=== PATIENT | female | born 1945 | race Hispanic/Latino ===

== ENCOUNTER 2018-01-30 14:01 | Emergency (ER) | payer MEDICARE ==
[~2018-01-30 14:01] MED LIST: ACET-66 PO; ASPI-1197 PO; AZAT50TA PO; CITA40TA6 PO; CLOB1KT.5 TP; CLON2TAB21 PO; FURO20TA4 PO; GLIP5TAB11 PO; HYDR25TA PO; INSLAN SQ; LINA290C PO; LOSA50TA37 PO; METF10004 PO; MIRT15TA6 PO; PRED5TAB44 PO; SIMV40TA5 PO
[2018-01-30 14:48] LABS: APPEARANCE,URINE Clear (CLEAR); BILIRUBIN,URINE Negative (NEGATIVE); COLOR,URINE Yellow (YELLOW); GLUCOSE, URINE (UA) Negative (NEGATIVE); KETONES,URINE Trace mg/dL (NEGATIVE); LEUKOCYTE ESTERASE ,URINE Small (NEGATIVE); NITRATE,URINE Negative (NEGATIVE); OCCULT BLOOD,URINE Negative (NEGATIVE); PROTEIN,URINE Negative (NEGATIVE); UROBILINOGEN,URINE 0.2 mg/dL (0.2-1.0)
[2018-01-30] MEDS ORDERED: DEXAMETHASONE SOD PHOSPHATE 10MG/ML 1ML VIAL ONE (14:52)
[2018-01-30 14:56] LABS: BACTERIA,URINE None Seen /HPF (None Seen); HYALINE CASTS, URINE 0-1 /LPF (0-1 /LPF); RBC,URINE None Seen /HPF (0-1); SQUAMOUS EPITHELIAL CELL,UR 0-2 /HPF (0-2); WBC,URINE 0-1 /HPF (0-1)
== END 2018-01-30 16:23 | disposition home or self-care (01) ==
LOC: EDH 14:01
DX: M54.41 Lumbago with sciatica, right side (principal); E11.9 Type 2 diabetes mellitus without complications; I10 Essential (primary) hypertension; I25.10 Atherosclerotic heart disease of native coronary artery without angina pectoris; M19.90 Unspecified osteoarthritis, unspecified site; Z98.62 Peripheral vascular angioplasty status; Z91.040 Latex allergy status; Z88.1 Allergy status to other antibiotic agents; Z79.4 Long term (current) use of insulin
CPT/HCPCS: 72131; 81001; 96372; 99285; J1100

== ENCOUNTER → 2018-03-15 | Outpatient (CLI) | payer MEDICARE, OTHER | END | disposition home or self-care (01) | LOC: RAH 12:47 | PROVIDERS: ATTEND Internal Medicine Endocrinology, Diabetes & Metabolism | DX: E04.2 Nontoxic multinodular goiter (principal); E64.2 Sequelae of vitamin C deficiency | CPT/HCPCS: 76536 ==

== ENCOUNTER → 2018-07-06 | Outpatient (CLI) | payer OTHER ==
[~2018-07-06] MED LIST changes: +LOSA50TA25 PO; -LOSA50TA37 PO; +METF-446 PO; -METF10004 PO
== END | disposition home or self-care (01) ==
LOC: RAH 08:43
PROVIDERS: ATTEND Family Medicine
DX: M54.41 Lumbago with sciatica, right side (principal); G70.01 Myasthenia gravis with (acute) exacerbation; K21.9 Gastro-esophageal reflux disease without esophagitis; F32.9 Major depressive disorder, single episode, unspecified; I10 Essential (primary) hypertension; E11.65 Type 2 diabetes mellitus with hyperglycemia; E78.00 Pure hypercholesterolemia, unspecified; E03.9 Hypothyroidism, unspecified
CPT/HCPCS: 72148

== ENCOUNTER → 2018-09-07 | Outpatient (CLI) | payer OTHER | END | disposition home or self-care (01) | LOC: OIH 15:09 | PROVIDERS: ATTEND Family Medicine | DX: M25.512 Pain in left shoulder (principal); M79.89 Other specified soft tissue disorders; K21.9 Gastro-esophageal reflux disease without esophagitis | CPT/HCPCS: 73030 ==

== ENCOUNTER → 2018-09-09 | Outpatient (CLI) | payer OTHER | END | disposition home or self-care (01) | LOC: OIH 14:59 | PROVIDERS: ATTEND Family Medicine | DX: M70.72 Other bursitis of hip, left hip (principal); K21.9 Gastro-esophageal reflux disease without esophagitis | CPT/HCPCS: 73502 ==

== ENCOUNTER → 2018-10-01 | Outpatient (CLI) | payer OTHER | END | disposition home or self-care (01) | LOC: RAH 09:04 | PROVIDERS: ATTEND Family Medicine | DX: Z12.31 Encounter for screening mammogram for malignant neoplasm of breast (principal) | CPT/HCPCS: 77067 ==

== ENCOUNTER → 2018-10-22 | Outpatient (CLI) | payer OTHER ==
[~2018-10-22] MED LIST changes: -LOSA50TA25 PO; +LOSA50TA64 PO
== END | disposition home or self-care (01) ==
LOC: OIH 10:22
PROVIDERS: ATTEND Family Medicine
DX: M19.012 Primary osteoarthritis, left shoulder (principal)
CPT/HCPCS: 73030

== ENCOUNTER → 2018-11-23 | Outpatient (CLI) | payer OTHER | END | disposition home or self-care (01) | LOC: RAH 07:12 | PROVIDERS: ATTEND Orthopaedic Surgery | DX: R60.9 Edema, unspecified (principal) | CPT/HCPCS: 73721 ==

== ENCOUNTER 2019-01-14 08:36 | Day surgery (SDC) | payer OTHER ==
[2019-01-13 15:06] VITALS: BP 126/55
[2019-01-13 15:07] LABS: EOSINOPHILS % (AUTO) 1.3 % (0.0-8.0); HEMATOCRIT 37.5 % (36-48); LYMPHOCYTES % (AUTO) 23.9 % (21.0-51.0); MEAN CORPUSCULAR HEMOGLOBIN 34.1 pg (27.0-33.0); MEAN CORPUSCULAR HGB CONC 34.2 g/dL (32.0-36.0); MEAN CORPUSCULAR VOLUME 99.7 fL (79-99); NEUTROPHILS % (AUTO) 60.8 % (40.0-77.0); NUCLEATED RED BLOOD CELLS 0.2 % (0.0-0.19); PLATELET COUNT (AUTO) 231 K/uL (130-400); RED BLOOD CELL COUNT(AUTO) 3.76 MIL/uL (4.00-5.50); RED CELL DISTRIBUTION WIDTH 15.2 % (11.0-15.5); WHITE BLOOD COUNT (AUTO) 7.1 K/uL (4.8-10.8)
[2019-01-13 15:19] LABS: POTASSIUM 3.1 mmol/L (3.5-5.1)
--- NOTE | 2019-01-13 16:18 | NUR ---
labs abnormal k+ , reported to Dr. Krause , further orders given and will be carried out.
[~2019-01-14] VITALS: Ht 165.1 cm; Wt 69.9 kg
[2019-01-14] VITALS (18 sets, daily range): BP systolic 99–129; BP diastolic 50–62
[2019-01-14] MEDS: CLINDAMYCIN 900 MG/D5% WATER 50 ML IV SCH ×2 (06:00→12:55)
[~2019-01-14 08:36] MED LIST changes: -CITA40TA6 PO; -CLOB1KT.5 TP; -INSLAN SQ; +INSU100V12 SQ; +ISOS60TA4 PO; +MELA1TAB8 PO; +METO-391 PO; +NAPR-1023 PO; +NITR0.4T SL; -PRED5TAB44 PO; +PYRI60TA PO; +RANI150T7 PO; +VENL150T3 PO
[2019-01-14] MEDS ORDERED: SODIUM CHLORIDE 0.9% 1000ML 1,000 ML IV ONE (09:34)
--- NOTE | 2019-01-14 09:50 | NUR ---
POTENTIAL FOR INFECTION: NO SHAVING NEEDED TO LEFT SHOULDER, WIPED WITH BK: 2% CHLORHEXIDINE GLUCONATE CLOTH PT PRE-OP SKIN PREP PER ALIREZA RAMIREZ
[2019-01-14] MEDS ORDERED: EPINEPHRINE 1 MG/ML 30ML VIAL IJ ONE (10:11)
[2019-01-14] MEDS ORDERED: PROPOFOL 10 MG/ML 20ML VIAL IV ONE (12:27)
[2019-01-14] MEDS ORDERED: ONDANSETRON HCL 4 MG/2 ML VIAL ONE (12:27)
[2019-01-14] MEDS ORDERED: LIDOCAINE PF 2% 5ML ABBOJECT ONE (12:27)
[2019-01-14] MEDS ORDERED: DEXAMETHASONE SOD PHOSPHATE 10MG/ML 1ML VIAL ONE (12:27)
[2019-01-14] MEDS ORDERED: FENTANYL CITRATE PF 50 MCG/1 ML 2ML VIAL ONE (12:27)
[2019-01-14] MEDS ORDERED: FENTANYL CITRATE PF 50 MCG/1 ML 5ML AMP IV ONE (12:28)
[2019-01-14] MEDS ORDERED: EPHEDRINE SULFATE 50 MG/ML AMPULE ONE (12:47)
[2019-01-14] MEDS ORDERED: HYDR-4457 PO (14:21)
[2019-01-14] MEDS ORDERED: CLIN300C3 PO (14:21)
== END 2019-01-14 16:35 | disposition home or self-care (01) ==
LOC: DAH 08:36
PROVIDERS: ATTEND Orthopaedic Surgery
DX: M75.42 Impingement syndrome of left shoulder (principal); Z98.890 Other specified postprocedural states; M25.512 Pain in left shoulder; Z79.899 Other long term (current) drug therapy; G89.29 Other chronic pain; Z90.710 Acquired absence of both cervix and uterus; M19.90 Unspecified osteoarthritis, unspecified site; F41.9 Anxiety disorder, unspecified; F32.9 Major depressive disorder, single episode, unspecified; G70.00 Myasthenia gravis without (acute) exacerbation; I25.10 Atherosclerotic heart disease of native coronary artery without angina pectoris; K21.9 Gastro-esophageal reflux disease without esophagitis; E11.9 Type 2 diabetes mellitus without complications; E78.5 Hyperlipidemia, unspecified; I10 Essential (primary) hypertension
CPT/HCPCS: 29822; 29826; 36415 ×2; 80048; 82948 ×2; 84132; 85025; A4565; A4649 ×2; A4930; A6204; G0168; J0171; J1100; J2001; J2405; J2704; J3010 ×2; J3490 ×2; J7030; J7120

== ENCOUNTER → 2019-02-22 | Outpatient (CLI) | payer OTHER ==
[~2019-02-22] MED LIST changes: +CLIN300C3 PO; +HYDR-4457 PO
== END | disposition home or self-care (01) ==
LOC: OIH 15:58
PROVIDERS: ATTEND Family Medicine
DX: M79.671 Pain in right foot (principal)
CPT/HCPCS: 73630

== ENCOUNTER 2019-03-18 05:39 | Day surgery (SDC) | payer OTHER ==
[~2019-03-18] VITALS: Ht 165.1 cm; Wt 69.9 kg
[~2019-03-18 05:39] MED LIST changes: -ASPI-1197 PO; -CLIN300C3 PO; -HYDR-4457 PO; +SODIUM CHLORIDE 0.9% 1000ML 1,000 ML IV ONE
[2019-03-18 07:07] VITALS: BP 99/47
[2019-03-18] MEDS ORDERED: PROPOFOL 10 MG/ML 20ML VIAL IV ONE ×2 (07:46)
[2019-03-18 08:13] VITALS: BP 101/43
[2019-03-18 08:18] VITALS: BP 96/41
[2019-03-18 08:23] VITALS: BP 98/46
[2019-03-18 08:28] VITALS: BP 98/47
[2019-03-18 08:33] VITALS: BP 100/48
--- NOTE | 2019-03-18 08:38 | NUR ---
DC PT DC HOME VIA WC, NO DISTRESS NOTED. DENIED ANY PAIN OR DISCOMFORTS. PIV REMOVED SITE ASYMPTOMATIC, DC INSTRUCTIONS GIVEN TO PATIENT SPOUSE EARLIER,
== END 2019-03-18 08:38 | disposition home or self-care (01) ==
LOC: ENDO 05:39 → DAH 05:39 → ENDO 08:38
PROVIDERS: ATTEND Internal Medicine
DX: K29.50 Unspecified chronic gastritis without bleeding (principal); K31.89 Other diseases of stomach and duodenum; K21.0 Gastro-esophageal reflux disease with esophagitis; K31.84 Gastroparesis; K82.8 Other specified diseases of gallbladder; K59.00 Constipation, unspecified; Z86.010 Personal history of colon polyps; I10 Essential (primary) hypertension; F32.9 Major depressive disorder, single episode, unspecified; I25.10 Atherosclerotic heart disease of native coronary artery without angina pectoris; E11.9 Type 2 diabetes mellitus without complications; E03.9 Hypothyroidism, unspecified; F41.9 Anxiety disorder, unspecified; G70.00 Myasthenia gravis without (acute) exacerbation; Z79.82 Long term (current) use of aspirin; Z79.84 Long term (current) use of oral hypoglycemic drugs; Z79.899 Other long term (current) drug therapy; Z90.710 Acquired absence of both cervix and uterus; Z90.49 Acquired absence of other specified parts of digestive tract; Z98.890 Other specified postprocedural states; Z80.0 Family history of malignant neoplasm of digestive organs; Z88.0 Allergy status to penicillin; Z88.5 Allergy status to narcotic agent; Z88.8 Allergy status to other drugs, medicaments and biological substances; Z91.040 Latex allergy status; Z88.2 Allergy status to sulfonamides
CPT/HCPCS: 43239; 82948 ×2; 88305; 93005; A4606; J2704 ×2; J7030

== ENCOUNTER 2019-03-20 17:26 | Emergency (ER) | payer OTHER ==
[~2019-03-20 17:26] MED LIST changes: -SODIUM CHLORIDE 0.9% 1000ML 1,000 ML IV ONE
[2019-03-20] MEDS ORDERED: SODIUM CHLORIDE 0.9% 1000ML 1,000 ML IV ONE (18:16)
[2019-03-20] MEDS ORDERED: CYCLOBENZAPRINE HCL 10 MG TABLET ONE (18:17)
[2019-03-20 18:20] LABS: BASOPHILS % (AUTO) 0.6 % (0.0-5.0); HEMATOCRIT 36.5 % (36-48); LYMPHOCYTES % (AUTO) 26.8 % (21.0-51.0); MEAN CORPUSCULAR HEMOGLOBIN 33.7 pg (27.0-33.0); MEAN CORPUSCULAR HGB CONC 34.2 g/dL (32.0-36.0); MEAN CORPUSCULAR VOLUME 98.6 fL (79-99); MONOCYTES % (AUTO) 12.7 % (3.0-13.0); NEUTROPHILS % (AUTO) 58.9 % (40.0-77.0); NUCLEATED RED BLOOD CELLS 0.1 % (0.0-0.19); PLATELET COUNT (AUTO) 244 K/uL (130-400); RED CELL DISTRIBUTION WIDTH 15.4 % (11.0-15.5); WHITE BLOOD COUNT (AUTO) 8.1 K/uL (4.8-10.8)
[2019-03-20 18:31] LABS: CREATININE 1.2 mg/dL (0.5-1.5); POTASSIUM 3.1 mmol/L (3.5-5.1)
[2019-03-20 18:35] LABS: BILIRUBIN,DIRECT 0.1 mg/dL (0.0-0.3); BILIRUBIN,TOTAL 0.5 mg/dL (0.2-1.0); TOTAL PROTEIN, SERUM 8.2 g/dL (6.0-8.3)
[2019-03-20] MEDS ORDERED: POTASSIUM BICARB/CIT AC 25 MEQ TABLET.EFF ONE (19:10)
[2019-03-20] MEDS ORDERED: KETOROLAC TROMETHAMINE 30MG/ML ONE (19:10)
[2019-03-20 20:25] LABS: APPEARANCE,URINE Clear (CLEAR); BILIRUBIN,URINE Negative (NEGATIVE); COLOR,URINE Yellow (YELLOW); GLUCOSE, URINE (UA) Negative (NEGATIVE); KETONES,URINE Negative (NEGATIVE); LEUKOCYTE ESTERASE ,URINE Trace (NEGATIVE); NITRATE,URINE Negative (NEGATIVE); OCCULT BLOOD,URINE Negative (NEGATIVE); PROTEIN,URINE Negative (NEGATIVE)
[2019-03-20 20:55] LABS: BACTERIA,URINE Rare /HPF (None Seen); RBC,URINE None Seen /HPF (0-1); WBC,URINE 0-1 /HPF (0-1)
[2019-03-20 20:56] LABS: SQUAMOUS EPITHELIAL CELL,UR Rare /HPF (0-2)
== END 2019-03-20 20:29 | disposition home or self-care (01) ==
LOC: EDH 17:26
DX: S13.9XXA Sprain of joints and ligaments of unspecified parts of neck, initial encounter (principal); I10 Essential (primary) hypertension; E11.9 Type 2 diabetes mellitus without complications; F32.9 Major depressive disorder, single episode, unspecified; I25.10 Atherosclerotic heart disease of native coronary artery without angina pectoris; F41.9 Anxiety disorder, unspecified; Z88.0 Allergy status to penicillin; Z88.1 Allergy status to other antibiotic agents; Z88.5 Allergy status to narcotic agent; Z88.6 Allergy status to analgesic agent; Z91.040 Latex allergy status; Z88.8 Allergy status to other drugs, medicaments and biological substances; Z79.4 Long term (current) use of insulin; X58.XXXA Exposure to other specified factors, initial encounter; Y93.89 Activity, other specified; Y92.89 Other specified places as the place of occurrence of the external cause; Y99.8 Other external cause status
CPT/HCPCS: 36415; 71045; 80048; 80076; 81001; 82550; 82948; 84484; 85025; 87804 ×2; 93005; 96374; 99285; J1885; J7030

== ENCOUNTER → 2019-05-11 | Outpatient (CLI) | payer OTHER | END | disposition home or self-care (01) | LOC: RAH 14:39 | PROVIDERS: ATTEND Neurological Surgery | DX: M48.062 Spinal stenosis, lumbar region with neurogenic claudication (principal); M48.07 Spinal stenosis, lumbosacral region | CPT/HCPCS: 72148 ==

== ENCOUNTER → 2019-10-14 | Outpatient (CLI) | payer OTHER ==
[~2019-10-14] MED LIST changes: +SIMV-46 PO; -SIMV40TA5 PO
== END | disposition home or self-care (01) ==
LOC: RAH 09:25
PROVIDERS: ATTEND Family Medicine
DX: Z12.31 Encounter for screening mammogram for malignant neoplasm of breast (principal)
CPT/HCPCS: 77067

== ENCOUNTER → 2019-12-07 | Outpatient (CLI) | payer OTHER | END | disposition home or self-care (01) | LOC: OIH 14:04 | PROVIDERS: ATTEND Family Medicine | DX: M16.0 Bilateral primary osteoarthritis of hip (principal) | CPT/HCPCS: 73521 ==

== ENCOUNTER → 2019-12-21 | Outpatient (CLI) | payer OTHER | END | disposition home or self-care (01) | LOC: RAH 14:42 | PROVIDERS: ATTEND Internal Medicine Endocrinology, Diabetes & Metabolism | DX: E04.2 Nontoxic multinodular goiter (principal) | CPT/HCPCS: 76536 ==

== ENCOUNTER → 2020-03-02 | Outpatient (CLI) | payer OTHER ==
[~2020-03-02] MED LIST changes: +IOHEXOL-350 50ML VIAL IV ONE
== END | disposition home or self-care (01) ==
LOC: RAH 13:25
PROVIDERS: ATTEND Family Medicine
DX: R41.82 Altered mental status, unspecified (principal)
CPT/HCPCS: 70470; Q9967

== ENCOUNTER → 2020-08-09 | Outpatient (CLI) | payer OTHER ==
[~2020-08-09] MED LIST changes: -IOHEXOL-350 50ML VIAL IV ONE
== END | disposition home or self-care (01) ==
LOC: RAH 11:47
PROVIDERS: ATTEND Internal Medicine
DX: M76.62 Achilles tendinitis, left leg (principal)
CPT/HCPCS: 73610

== ENCOUNTER → 2020-08-31 | Outpatient (CLI) | payer OTHER | END | disposition home or self-care (01) | LOC: RAH 09:41 | PROVIDERS: ATTEND Internal Medicine | DX: K76.0 Fatty (change of) liver, not elsewhere classified (principal); R94.5 Abnormal results of liver function studies; R73.09 Other abnormal glucose | CPT/HCPCS: 76705 ==

== ENCOUNTER → 2020-09-11 | Outpatient (CLI) | payer OTHER | END | disposition home or self-care (01) | LOC: RAH 08:28 | PROVIDERS: ATTEND Internal Medicine | DX: M54.16 Radiculopathy, lumbar region (principal); M48.05 Spinal stenosis, thoracolumbar region; G89.4 Chronic pain syndrome | CPT/HCPCS: 70450; 72148 ==

== ENCOUNTER → 2021-01-11 | Outpatient (CLI) | payer OTHER ==
[~2021-01-11] MED LIST changes: -ISOS60TA4 PO; +ISOS60TA77 PO; +MELA1TAB52 PO; -MELA1TAB8 PO
== END | disposition home or self-care (01) ==
LOC: RAH 12:33
PROVIDERS: ATTEND Internal Medicine
DX: Z12.31 Encounter for screening mammogram for malignant neoplasm of breast (principal); Z00.01 Encounter for general adult medical examination with abnormal findings
CPT/HCPCS: 77067

== ENCOUNTER → 2021-02-19 | Outpatient (CLI) | payer OTHER | END | disposition home or self-care (01) | LOC: RAH 15:05 | PROVIDERS: ATTEND Internal Medicine | DX: M77.31 Calcaneal spur, right foot (principal); M19.071 Primary osteoarthritis, right ankle and foot | CPT/HCPCS: 73610; 73630 ==

== ENCOUNTER → 2021-10-08 | Outpatient (CLI) | payer OTHER ==
[~2021-10-08] MED LIST changes: +INSU100I21 SQ; +METO-409 PO; +MIRT-22 PO; -MIRT15TA6 PO
== END | disposition home or self-care (01) ==
LOC: RAH 11:58
PROVIDERS: ATTEND Internal Medicine
DX: Z01.818 Encounter for other preprocedural examination (principal); M48.061 Spinal stenosis, lumbar region without neurogenic claudication
CPT/HCPCS: 71046

== ENCOUNTER 2021-10-15 06:17 | Day surgery (SDC) | payer OTHER ==
[~2021-10-15] VITALS: Ht 165.1 cm; Wt 68.0 kg
[2021-10-15] VITALS (8 sets, daily range): BP systolic 104–118; BP diastolic 60–65
[~2021-10-15 06:17] MED LIST changes: -AZAT50TA PO; -GLIP5TAB11 PO; -HYDR25TA PO; -INSU100V12 SQ; -METO-391 PO; -NAPR-1023 PO; -PYRI60TA PO
[2021-10-15] MEDS ORDERED: 0.9%NACL 1000ML 1,000 ML IV ONE (06:22)
[2021-10-15] MEDS ORDERED: PROPOFOL 10 MG/ML 20ML VIAL IV ONE (08:09)
[2021-10-15] MEDS ORDERED: BOTULINUM TOXIN TYPE A 100 UNITS/VIAL INJ SCH (08:30)
== END 2021-10-15 09:05 | disposition home or self-care (01) ==
LOC: DAH 06:17 → ENDO 06:17
PROVIDERS: ATTEND Internal Medicine
DX: K22.81 Esophageal polyp (principal); R13.10 Dysphagia, unspecified; K25.9 Gastric ulcer, unspecified as acute or chronic, without hemorrhage or perforation; K29.70 Gastritis, unspecified, without bleeding; K59.04 Chronic idiopathic constipation; K31.89 Other diseases of stomach and duodenum; I10 Essential (primary) hypertension; K21.9 Gastro-esophageal reflux disease without esophagitis; E11.9 Type 2 diabetes mellitus without complications; E03.9 Hypothyroidism, unspecified; F32.9 Major depressive disorder, single episode, unspecified; F41.9 Anxiety disorder, unspecified; I25.10 Atherosclerotic heart disease of native coronary artery without angina pectoris; K22.0 Achalasia of cardia; Z90.49 Acquired absence of other specified parts of digestive tract; Z90.710 Acquired absence of both cervix and uterus; Z79.899 Other long term (current) drug therapy; Z79.82 Long term (current) use of aspirin; Z79.84 Long term (current) use of oral hypoglycemic drugs; Z88.0 Allergy status to penicillin; Z91.040 Latex allergy status; Z20.822 Contact with and (suspected) exposure to COVID-19
CPT/HCPCS: 43236; 43239; 82948; 87635; 88305; 88342; A4215 ×2; A4221; A4222; A4223; A4606; A4620; A4657; A4663; C9803; J0585; J2704; J7030

== ENCOUNTER → 2022-04-02 | Outpatient (CLI) | payer OTHER | END | disposition home or self-care (01) | LOC: RAH 13:01 | PROVIDERS: ATTEND Internal Medicine | DX: M47.814 Spondylosis without myelopathy or radiculopathy, thoracic region (principal); M43.26 Fusion of spine, lumbar region; M43.27 Fusion of spine, lumbosacral region; M54.50 Low back pain, unspecified; M54.6 Pain in thoracic spine; Z98.1 Arthrodesis status; Z96.698 Presence of other orthopedic joint implants | CPT/HCPCS: 72070; 72100 ==

== ENCOUNTER 2023-04-16 11:53 | Emergency (ER) | payer OTHER ==
[~2023-04-16] VITALS: Ht 165.1 cm; Wt 70.8 kg
[~2023-04-16 11:53] MED LIST changes: -INSU100I21 SQ; +INSU100I22 SQ
[2023-04-16 12:28] LABS: BASOPHILS % (AUTO) 0.5 % (0.0-5.0); HEMATOCRIT 39.6 % (36-48); LYMPHOCYTES % (AUTO) 40.2 % (21.0-51.0); MEAN CORPUSCULAR HEMOGLOBIN 29.3 pg (27.0-33.0); MEAN CORPUSCULAR HGB CONC 32.3 g/dL (32.0-36.0); MEAN CORPUSCULAR VOLUME 90.6 fL (79-99); MONOCYTES % (AUTO) 9.2 % (3.0-13.0); NEUTROPHILS % (AUTO) 47.6 % (40.0-77.0); PLATELET COUNT (AUTO) 252 K/uL (130-400); RED BLOOD CELL COUNT(AUTO) 4.37 MIL/uL (4.00-5.50); RED CELL DISTRIBUTION WIDTH 14.3 % (11.0-15.5); WHITE BLOOD COUNT (AUTO) 6.4 K/uL (4.8-10.8)
[2023-04-16 12:43] LABS: ALBUMIN 3.9 g/dL (3.5-5.0); CREATININE 1.3 mg/dL (0.5-1.5); TOTAL PROTEIN, SERUM 8.6 g/dL (6.0-8.3)
[2023-04-16 13:24] LABS: APPEARANCE,URINE CLEAR (CLEAR); BILIRUBIN,URINE NEGATIVE (NEGATIVE); COLOR,URINE COLORLESS (YELLOW); GLUCOSE, URINE (UA) >=1000 mg/dL (NEGATIVE); KETONES,URINE NEGATIVE (NEGATIVE); LEUKOCYTE ESTERASE ,URINE 25 Leu/uL (NEGATIVE); NITRATE,URINE NEGATIVE (NEGATIVE); OCCULT BLOOD,URINE NEGATIVE (NEGATIVE); PH,URINE 6.5 (5.0-8.0); PROTEIN,URINE NEGATIVE (NEGATIVE); UROBILINOGEN,URINE 0.2 mg/dL (0.2-1.0)
[2023-04-16 13:33] LABS: RBC,URINE 0-1 /HPF (0-1); SQUAMOUS EPITHELIAL CELL,UR RARE /HPF (0-2); TRANSITIONAL EPI CELLS,URINE RARE /HPF (None Seen)
[2023-04-16] MEDS ORDERED: NITR100C4 PO (15:07)
[2023-04-16 15:08] VITALS: BP 131/68
== END 2023-04-16 16:10 | disposition home or self-care (01) ==
LOC: EDH 11:53
DX: N39.0 Urinary tract infection, site not specified (principal); G89.29 Other chronic pain; M54.50 Low back pain, unspecified
CPT/HCPCS: 36415; 71045; 80053; 81001; 83880; 84484; 85025; 85378; 93005

== ENCOUNTER → 2023-07-30 | Outpatient (CLI) | payer OTHER ==
[~2023-07-30] MED LIST changes: +NITR100C4 PO
[2023-07-30 16:15] LABS: BASOPHILS # (AUTO) 0.05 K/uL (0.00-0.20); BASOPHILS % (AUTO) 0.6 % (0.0-5.0); EOSINOPHILS # (AUTO) 0.13 K/uL (0.00-0.70); EOSINOPHILS % (AUTO) 1.7 % (0.0-8.0); HEMATOCRIT 40.6 % (36-48); IMMATURE GRANULOCYTE ABSOLUTE 0.03 K/uL (0-1); LYMPHOCYTES # (AUTO) 3.3 K/uL (1.0-4.8); LYMPHOCYTES % (AUTO) 42.1 % (21.0-51.0); MEAN CORPUSCULAR HEMOGLOBIN 29.8 pg (27.0-33.0); MEAN CORPUSCULAR HGB CONC 32.3 g/dL (32.0-36.0); MEAN CORPUSCULAR VOLUME 92.3 fL (79-99); MONOCYTES # (AUTO) 0.7 K/uL (0.1-1.0); MONOCYTES % (AUTO) 8.5 % (3.0-13.0); NEUTROPHILS # (AUTO) 3.6 K/uL (1.8-7.7); NEUTROPHILS % (AUTO) 46.7 % (40.0-77.0); PLATELET COUNT (AUTO) 319 K/uL (130-400); WHITE BLOOD COUNT (AUTO) 7.8 K/uL (4.8-10.8)
[2023-07-30 16:33] LABS: CREATININE 1.6 mg/dL (0.5-1.5); POTASSIUM 4.3 mmol/L (3.5-5.1)
== END | disposition home or self-care (01) ==
LOC: LAB 13:27
PROVIDERS: ATTEND Internal Medicine Cardiovascular Disease
DX: I10 Essential (primary) hypertension (principal)
CPT/HCPCS: 36415; 80048; 84443; 85025

== ENCOUNTER → 2024-02-05 | Outpatient (CLI) | payer OTHER | END | disposition home or self-care (01) | LOC: RAH 12:28 | PROVIDERS: ATTEND Internal Medicine | DX: Z12.31 Encounter for screening mammogram for malignant neoplasm of breast (principal) | CPT/HCPCS: 77067 ==

== ENCOUNTER → 2024-05-09 | Outpatient (CLI) | payer OTHER ==
[2024-05-09 15:18] LABS: BASOPHILS # (AUTO) 0.03 K/uL (0.00-0.20); BASOPHILS % (AUTO) 0.4 % (0.0-5.0); EOSINOPHILS # (AUTO) 0.11 K/uL (0.00-0.70); EOSINOPHILS % (AUTO) 1.5 % (0.0-8.0); HEMATOCRIT 36.6 % (36-48); IMMATURE GRANULOCYTE ABSOLUTE 0.03 K/uL (0-1); LYMPHOCYTES # (AUTO) 2.4 K/uL (1.0-4.8); LYMPHOCYTES % (AUTO) 32.7 % (21.0-51.0); MEAN CORPUSCULAR HGB CONC 30.6 g/dL (32.0-36.0); MEAN CORPUSCULAR VOLUME 88.2 fL (79-99); MONOCYTES # (AUTO) 0.6 K/uL (0.1-1.0); MONOCYTES % (AUTO) 8.6 % (3.0-13.0); NEUTROPHILS # (AUTO) 4.1 K/uL (1.8-7.7); NEUTROPHILS % (AUTO) 56.4 % (40.0-77.0); PLATELET COUNT (AUTO) 324 K/uL (130-400); RED BLOOD CELL COUNT(AUTO) 4.15 MIL/uL (4.00-5.50); RED CELL DISTRIBUTION WIDTH 16.1 % (11.0-15.5); WHITE BLOOD COUNT (AUTO) 7.3 K/uL (4.8-10.8)
[2024-05-09 15:42] LABS: CREATININE 1.6 mg/dL (0.5-1.0); POTASSIUM 4.6 mmol/L (3.5-5.1)
== END | disposition home or self-care (01) ==
LOC: LAB 13:23
PROVIDERS: ATTEND Internal Medicine Cardiovascular Disease
DX: I11.9 Hypertensive heart disease without heart failure (principal); R00.2 Palpitations
CPT/HCPCS: 36415; 80048; 83880; 85025

== ENCOUNTER → 2024-06-07 | Outpatient (CLI) | payer OTHER | END | disposition home or self-care (01) | LOC: SHCH 13:58 | PROVIDERS: ATTEND Internal Medicine Cardiovascular Disease | DX: I08.3 Combined rheumatic disorders of mitral, aortic and tricuspid valves (principal); I11.9 Hypertensive heart disease without heart failure; R06.09 Other forms of dyspnea; R06.02 Shortness of breath; E11.9 Type 2 diabetes mellitus without complications; E78.5 Hyperlipidemia, unspecified | CPT/HCPCS: 93306 ==

== ENCOUNTER → 2024-07-14 | Outpatient (CLI) | payer OTHER ==
[2024-07-14 16:36] LABS: CREATININE 1.6 mg/dL (0.5-1.0); POTASSIUM 4.1 mmol/L (3.5-5.1)
== END | disposition home or self-care (01) ==
LOC: LAB 13:25
PROVIDERS: ATTEND Internal Medicine Cardiovascular Disease
DX: I51.9 Heart disease, unspecified (principal)
CPT/HCPCS: 36415; 80048

== ENCOUNTER → 2024-11-04 | Outpatient (CLI) | payer OTHER ==
[2024-11-04] MEDS: REGADENOSON 0.4 MG/5 ML PF SYG IVP ONE (11:29)
--- NOTE | 2024-11-07 09:15 | HMCSR ---
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 Informerd consent was witnessed Cameron Dumont RN First, low dose rest was performed then high dose stress. RESTING DATA: The resting ekg shows: NSR Rest SPECT myocardial perfusion imaging was performed in supine position 63 minutes following the int ravenous injection of 10.7 mCi of Tc-99 Sestamibi. Time of rest injection: 08:32: Date: 11/04/2024 Time of rest imagin:35: Date: 11/04/2024 PHARMACOLOGIC STRESS: Pharmacologic stress test was performed by injecting regadenoson 0.4 mg IV push followed by the intra venous injection of 30.7 mCi of Tc-99 Sestamibi. Time of stress injection: 10:18: Date: 11/04/2024 Time of stress imagin:24: Date: 11/04/2024 Heart Rate at time of stress injection: 70 bpm. Gated Stress SPECT was performed 66 minutes after stress injection. The images were gated to evaluate regional wall motion and calculate left ventricular ejection fracti on. STRESS DETAILS Reason for Termination: Infusion complete Stress Symptoms: Dyspnea Max HR Achieved: 75 bpm % of APMHR Achieved: 53 Max Blood Pressure: 137/74 mmHg Stress ECG: NSR Conclusion No ischemia No infarct LV ejection fraction 775 Shiela LV wall motion Shiela LV size at rest and stress No increased lung uptake
== END | disposition home or self-care (01) ==
LOC: SHCH 07:53
PROVIDERS: ATTEND Internal Medicine Cardiovascular Disease
DX: I20.9 Angina pectoris, unspecified (principal); R06.00 Dyspnea, unspecified; R03.0 Elevated blood-pressure reading, without diagnosis of hypertension
CPT/HCPCS: 78452; 93017; J2785; A9500 ×2

== ENCOUNTER → 2025-01-05 | Outpatient (CLI) | payer OTHER ==
--- NOTE | 2025-01-06 08:40 | HMCIMG ---
KNEE 3VWS RT HISTORY: Right knee pain COMPARISON: None TECHNIQUE: 3 images of right knee were obtained. FINDINGS: There is no acute displaced fracture or dislocation. Mild degenerative changes are seen. IMPRESSION: 1. Findings as described above.
== END | disposition home or self-care (01) ==
LOC: OIH 15:21
PROVIDERS: ATTEND Nurse Practitioner Family
DX: M17.11 Unilateral primary osteoarthritis, right knee (principal); M25.561 Pain in right knee
CPT/HCPCS: 73562

== ENCOUNTER → 2025-02-13 | Outpatient (CLI) | payer OTHER ==
--- NOTE | 2025-02-13 14:33 | HMCIMG ---
Exam Type: CT LOW EXT W/O CONTRAST Clinical Information: Unilateral primary osteoarthritis, right knee Comparison: None Findings: There are degenerative changes with narrowing of the medial femorotibial joint space, with subchondral sclerosis. Medial compartment chondrocalcinosis is visible. There is osteopenia. No acute fractures are seen. The soft tissues appear normal. Impression: Degenerative changes medial compartment.
== END | disposition home or self-care (01) ==
LOC: RAH 02-08 12:47
PROVIDERS: ATTEND Internal Medicine
DX: M17.11 Unilateral primary osteoarthritis, right knee (principal); M25.861 Other specified joint disorders, right knee; M25.561 Pain in right knee
CPT/HCPCS: 73700

== ENCOUNTER → 2025-05-18 | Outpatient (CLI) | payer OTHER | END | disposition home or self-care (01) | LOC: RAH 09:18 | PROVIDERS: ATTEND Nurse Practitioner Family | DX: Z12.31 Encounter for screening mammogram for malignant neoplasm of breast (principal) | CPT/HCPCS: 77067 ==

== ENCOUNTER 2025-07-31 05:50 | Observation (INO) | payer OTHER ==
[2025-07-27 09:52] VITALS: BP 110/54; PULSE 71; RESP 13; TEMP 97.2
[2025-07-27 09:54] LABS: IMMATURE GRANULOCYTE ABSOLUTE 0.02 K/uL (0-1); NUCLEATED RED BLOOD CELLS 0.0 % (0.0-0.19); PLATELET COUNT (AUTO) 283 K/uL (130-400); RED BLOOD CELL COUNT(AUTO) 4.79 MIL/uL (4.00-5.50); RED CELL DISTRIBUTION WIDTH 13.1 % (11.0-15.5); WHITE BLOOD COUNT (AUTO) 7.2 K/uL (4.8-10.8)
[2025-07-27 10:06] LABS: CREATININE 1.3 mg/dL (0.5-1.0); GLOMERULAR FILTR. RATE CALC 42 mL/min (>90); GLUCOSE,RANDOM 140 mg/dL (70-105); SODIUM SERUM 140 mmol/L (136-145); UREA NITROGEN, BLOOD 23 mg/dL (7-18)
[2025-07-27 10:07] LABS: INR 0.99 (0.85-1.15)
--- NOTE | 2025-07-27 10:15 | NUR ---
RE: IS INITIAL IS INITIAL DONE BY RT FRANCIS DURING PREOP.
[2025-07-31] VITALS (21 sets, daily range): BP systolic 100–129; BP diastolic 43–77; PULSE 54–91; RESP 15–20; TEMP 97–98.4; O2SAT 97
[~2025-07-31] VITALS: Ht 165.1 cm; Wt 70.8 kg
[~2025-07-31 05:50] MED LIST changes: +ATOR40TA69 PO; +DAPA10TA PO; +HYDR-3421 PO; -INSU100I22 SQ; +INSU3INS3 SQ; -ISOS60TA77 PO; +LOSA100T59 PO; -LOSA50TA64 PO; -MELA1TAB52 PO; -METF-446 PO; +METO10TA3 PO; -MIRT-22 PO; +MIRT-93 PO; +NIFE-39 PO; -NITR0.4T SL; -NITR100C4 PO; +PANT40TA54 PO; -RANI150T7 PO; +SEMA1PEN3 SQ; -SIMV-46 PO; +VENL-83 PO; -VENL150T3 PO
[2025-07-31] MEDS ORDERED: TRANEXAMIC ACID 1000MG/10ML ONE (06:32)
[2025-07-31] MEDS ORDERED: MIDAZOLAM HCL 1 MG/ML 2ML VIAL ONE (06:52)
[2025-07-31] MEDS: TRANEXAMIC ACID 1000MG/10ML IV ONE ×2 (07:40→09:02)
[2025-07-31] MEDS ORDERED: FERROUS FUMARATE 324 MG TABLET PO PRN (09:30)
[2025-07-31] MEDS ORDERED: PoTASSium chl 10% ELIXIR 20MEQ 20 MEQ/15 ML UDCUP PO PRN (09:30)
[2025-07-31] MEDS ORDERED: HYDROcodone/APAP 5/325 1 TAB TABLET PO PRN (09:30)
--- NOTE | 2025-07-31 09:34 | DS ---
Discharge Summary Hospital Course Summary: The patient was admitted to the hospital postoperatively on 07/31/25 after undergoing right total knee arthroplasty. They did well with routine postoperative pain control. They worked well with physical therapy. They developed some acute blood loss anemia but remained asymptomatic. The hospital course was otherwise uncomplicated. They were subsequently able to be discharged on postoperative day [] once discharge arrangements were made with physical therapy. Lap Grinder(s): None Procedure(s): Right total knee arthroplasty, 07/31/2025 Assessment/Plan: ASSESSMENT: Post right total knee arthroplasty doing well Asymptomatic acute blood loss anemia PLAN: See Discharge instructions Home Medications: Reported Medications Insulin Glargine,Hum.rec.anlog (Lantus Solostar) 100 Unit/Ml (3 Ml) Insuln.pen, 15 UNIT SQ AM, SYRINGE 07/27/25 Venlafaxine HCl (Venlafaxine HCl) 75 Mg Tablet, 75 MG PO PM, TAB 07/27/25 Semaglutide (Ozempic) 1 Mg/0.75 Ml (4 Mg/3 Ml) Pen.injctr, 1 MG SQ QWEEK 07/27/25 Pantoprazole Sodium (Pantoprazole Sodium) 40 Mg Tablet.dr, 40 MG PO AM, TAB 07/27/25 Nifedipine (Nifedipine ER) 60 Mg Tab.er.24, 60 MG PO AM 07/27/25 Mirtazapine (Mirtazapine) 30 Mg Tablet, 30 MG PO PM, TAB 07/27/25 Metoclopramide HCl (Metoclopramide HCl) 10 Mg Tablet, 10 MG PO BID, TAB 07/27/25 Losartan Potassium (Losartan Potassium) 100 Mg Tablet, 100 MG PO PM, TAB 07/27/25 Linaclotide (Linzess) 290 Mcg Capsule, 290 MCG PO AD, CAP 07/27/25 Hydroxyzine HCl (Hydroxyzine HCl) 25 Mg Tablet, 25 MG PO PM, TAB 07/27/25 Dapagliflozin Propanediol (Farxiga) 10 Mg Tablet, 10 MG PO AM, TAB 07/27/25 Atorvastatin Calcium (LIPITOR) 40 Mg Tablet, 40 MG PO AM, TAB 07/27/25 Metoprolol Succinate (Metoprolol Succinate) 100 Mg Tab.er.24h, 100 MG PO HS, TAB 10/14/21 Clonazepam (Clonazepam) 2 Mg Tab.rapdis, 2 MG PO HS, TAB 10/31/16 Acetaminophen (Tylenol) 500 Mg Tab, 500 MG PO DAILY PRN for PAIN LEVEL 1 TO 5, TAB 10/31/16 Furosemide (Furosemide) 20 Mg Tablet, 20 MG PO DAILY, TAB 10/31/16 Discontinued Reported Medications Insulin Detemir (Levemir Flextouch) 100 Unit/1 Ml Insuln.pen, 45 UNIT SQ BID, SYRINGE 10/14/21 Nitroglycerin (Nitrostat) 0.4 Mg Tab.subl, 0.4 MG SL AD, TAB.SL 01/13/19 Venlafaxine HCl (Venlafaxine HCl ER) 150 Mg Tab.er.24, 150 MG PO HS 01/13/19 Melatonin (Melatonin) 1 Mg Tablet, 1 MG PO HSPRN PRN for SLEEP, TAB 01/13/19 Ranitidine HCl (Ranitidine HCl) 150 Mg Tablet, 150 MG PO BID, TAB 01/13/19 Isosorbide Mononitrate (Isosorbide Mononitrate ER) 60 Mg Tab.er.24h, 60 MG PO DAILY, TAB 01/13/19 Linaclotide (Linzess) 290 Mcg Capsule, 290 MCG PO DAILY PRN for constipation, CAP 10/31/16 Mirtazapine (Mirtazapine) 15 Mg Tablet, 15 MG PO HS, TAB 10/31/16 Simvastatin (Simvastatin) 40 Mg Tablet, 40 MG PO HS, TAB 10/31/16 Losartan Potassium (Losartan Potassium) 50 Mg Tablet, 50 MG PO DAILY, TAB 10/31/16 Metformin HCl (Metformin HCl) 1,000 Mg Tablet, 1000 MG PO BID, TAB 10/31/16 Discontinued Scripts Nitrofurantoin Monohyd/M-Cryst (Macrobid 100 mg Capsule) 100 Mg Capsule, 100 MG PO BID for 5 Days, #10 CAP Prov:JUDAH MOREAU 04/16/23 JORDAN VANEGAS MD Jul 31, 2025 09:34
--- NOTE | 2025-07-31 09:36 | OP ---
Operative Note: DATE OF PROCEDURE: 07/31/25 PREOPERATIVE DIAGNOSIS: Right knee osteoarthritis. POSTOPERATIVE DIAGNOSIS: Right knee osteoarthritis. PROCEDURE PERFORMED: Right knee total knee arthroplasty. SURGEON: Jackelin Montana MD CHILD CARE ATTENDANT: Sudhir. ANESTHESIA: General with adductor canal block. ANESTHESIA: BAKER Emir Saeed. ESTIMATED BLOOD LOSS: 50cc. COMPLICATIONS: None. DRAINS: None. SPECIMENS REMOVED: resected bone. Not sent to pathology. IMPLANTS: [employer] II BCS size 5 Oxinium femur, size 3 tibial base plate, 32 mm patella, 10 mm polyethylene STATEMENT OF MEDICAL NECESSITY: The patient is a 72-year-old female who suffers from right knee osteoarthritis failing conservative management. After discussion of the risks, benefits, and alternatives with the patient, they voluntarily agreed to undergo the aforementioned procedure. DESCRIPTION OF PROCEDURE: Patient was properly identified in the preoperative holding area. Surgical site marking was verified and surgery consent reviewed. The patient was then taken to the operating room and placed in supine position on the OR table. After induction of general anesthesia, preoperative antibiotics were given, all bony prominences were well-padded, and a well padded tourniquet was applied but not inflated at this time. The right lower extremity was then prepped and draped in usual sterile fashion. Surgical time out was done verifying correct surgery, side, site, and location to be performed. We then began the procedure by exsanguinating the limb using an Esmarch and inflating the tourniquet to 350 mmHg. At this point, we made an anterior midline incision using a 10 blade, coming down sharply the level of the fascia. Skin flaps were elevated medially and laterally. We then obtained a clean 10 blade and performed a standard medial parapatellar arthrotomy. We excised the infrapatellar fat pad. We performed our soft tissue releases off of the tibia. We transected the ACL and removed the anterior portion of the medial & lateral meniscus. We then brought the knee into hyperflexion with the patella everted. We used our entry reamer to enter the femoral canal. We then placed our intramedullary cutting guide for our distal femoral cutting block. We then performed our distal femoral osteotomy ensuring appropriate rotation and removed the bony wafer. We then removed these pins and block and then used jig 2 to size the distal femur with the after mentioned size found. We then placed our 5-in-1 cutting block in 4 degrees of external rotation and took our 5 cuts ensuring to protect the patellar tendon and the collateral ligaments. We then removed the cutting block and our bony fragments using a curved osteotome. We then placed our PCL retractor subluxating the tibia anteriorly. Using an extra medullary tibial cutting guide, we hung the block for our proximal tibial cut taking 2 mm off the more diseased portion. Prior to pinning this block in place, we ensured appropriate varus/valgus alignment and posterior slope similar to the [place] slope of the patient's knee. We then performed our proximal tibial osteotomy and removed the bony wafer using Bovie electrocautery to release any remaining soft tissue attachments. We then used our tibial sizing p addle and checked once more for varus & valgus alignment and found this to be appropriate. At this point, we pinned our tibial paddle in place. We then removed the PCL retractor and subluxated the tibia posteriorly while we placed our femoral trial component. We then finished preparing the notch with the reamer and box chisel. The notch portion of the trial femoral component was then placed. A posterior stabilized polyethylene, size 9 trial was placed. The knee was then taken through range of motion and found to have stable full range of motion. We then placed a bump under the ankle and everted the patella to perform our freehand cut of the undersurface the patella. We then sized our patella and reamed to the lug holes for this. We placed our trial patellar component and begin to take the knee through range of motion. The patella had significant lateral tracking. We performed an aggressive lateral release and had improvement in the tracking with only slight lateral pull remaining. At this point we began removing our trial components and punched the tibial keel prior to removing our tibial trial component. Final components were opened and cement was mixed on the back table while we injected local cocktail in the posterior capsule. We then thoroughly irrigated out the bone and dried the bony surfaces. We cemented our tibial component in place ensuring to remove excess cement and placed our trial polyethylene. We then cemented our femoral component in place once again taking time to ensure excess cement was removed leg was brought into full extension to help squeeze the excess cement from around the femoral component. We then brought the knee back in a flexion to remove this portion of the cement at this point we placed the ankle in a bump thoroughly irrigated off the patellar component and cemented our patellar component in standard fashion again removing excess cement. While we waited for the cement to cure, we thoroughly irrigated out the wound with normal saline. Once our cement had cured, we took the knee through a range of motion and found full and stable range of motion. We then elected to use the size 10 polyethylene and removed our trial polyethylene. We impacted our final polyethylene component in place in standard fashion and took the knee through a range of motion check once more. This was satisfactory so we began to repair the arthrotomy using #5 Ethibond and #1 Vicryl in interrupted [id number]-mv-[id number] fashion. Subcutaneous tissue was repaired using 2-0 Vicryl. Running subcuticular 3-0 Monocryl stitch with Dermabond placed over this for the skin. We then applied a foam barrier dressing and a pressure dressing consisting of 4 x 4's fluffs and an Lamont wrap. The tourniquet was then deflated. Patient was awakened from anesthesia, and they were taken to the recovery room in stable condition. JACKELIN MONTANA MD Jul 31, 2025 09:36
--- NOTE | 2025-07-31 11:00 | NUR ---
Pt is received from recovery room post right total keen replacement. She is alert and in no distress she voices that her pain level is a 7/10. PIV to right arm 20 g and flushing well. IV fluids started to right arm at 100/hr. Pt is oriented to the room. Pt has her call johnson in reach and the bed is in a low position.
[2025-07-31] MEDS: 0.9%NACL 1000ML 1,000 ML IV ONE (11:03)
[2025-07-31] MEDS: CLINDAMYCIN IVPB 900MG/50ML 50 ML IV ONE (11:03)
[2025-07-31] MEDS: SUGAMMADEX SODIUM 200 MG/2 ML VIAL IV ONE (11:04)
[2025-07-31] MEDS: 0.9%NACL 1000ML 1,000 ML IV SCH (11:11)
[2025-07-31] MEDS: HYDROcodone/APAP 5/325 1 TAB TABLET PO PRN ×2 (11:18→22:53)
--- NOTE | 2025-07-31 11:29 | HMCIMG ---
EXAM: CR right Knee, 2 View. CLINICAL HISTORY: S/P RT TKA SURGERY COMPARISON: None provided. FINDINGS: BONES: No acute fracture or dislocation. JOINTS: Status post right knee arthroplasty with intact hardware in satisfactory alignment. SOFT TISSUES: Soft tissue swelling and soft tissue air, consistent with the patient's recent postoperative state. IMPRESSION: 1. Status post right knee arthroplasty with intact hardware in satisfactory alignment. 2. No acute fracture or dislocation. 3. Soft tissue swelling and soft tissue air, consistent with the patient's recent postoperative state. /Runge
[2025-07-31] MEDS ORDERED: NON-FORMULARY MEDICATION 1 EACH (Linaclotide (Linzess) 290 MCG) PO SCH (12:00)
--- NOTE | 2025-07-31 14:55 | NUR ---
PT is helped to the restroom with the aid of a walker and gait belt. PT is using walker well.
[2025-08-01] VITALS: BP 134/67; PULSE 90; RESP 20; TEMP 98.5
[2025-08-01 04:00] VITALS: BP 131/64; PULSE 93; RESP 18; TEMP 99.3
[2025-08-01 04:51] LABS: NUCLEATED RED BLOOD CELLS 0.0 % (0.0-0.19); PLATELET COUNT (AUTO) 166.0 K/uL (130-400); RED BLOOD CELL COUNT(AUTO) 3.22 MIL/uL (4.00-5.50); RED CELL DISTRIBUTION WIDTH 13.0 % (11.0-15.5); WHITE BLOOD COUNT (AUTO) 9.5 K/uL (4.8-10.8)
[2025-08-01 05:03] LABS: CREATININE 1.1 mg/dL (0.5-1.0); GLOMERULAR FILTR. RATE CALC 51.0 mL/min (>90); GLUCOSE,RANDOM 119.0 mg/dL (70-105); SODIUM SERUM 140.0 mmol/L (136-145); UREA NITROGEN, BLOOD 20.0 mg/dL (7-18)
[2025-08-01] MEDS: CYCLOBENZAPRINE HCL 10 MG TABLET PO PRN (07:29)
--- NOTE | 2025-08-01 07:53 | PN ---
Ortho POD#1 This morning the patient is AAOx3 she is reporting moderate pain. She is OOB in chair. Using foot stool to alternate extension and flexio. -10 to 70 degrees. The osei bandage has been removed. The anterior dressing is intact. The gastrocnemius is soft nontender. Negative Vanesa's. Ice present to anterior joint. Bilateral SDS sleeves present and on. VSS afebrile. Laboratory results reviewed. Noted to have a drop in H & H as expected after TKA. Currently patient is asymptomatic. Will continue to assess and address per protocol as necessary. Operative findings discussed with patient. Voiding on her own without difficulty. Pending to have BM. Reenforced IS. Patient ambulated with PT yesterday about 30 ft and is pending further therapy this morning. The anticipated D/C plan for the patient is HH/PT. Assessment: S/P RT TKA Acute post operative blood loss anemia. Plan: continue with Dr. Montana TKA protocol and discharge planning. Acute post operative blood loss anemia address with protocol as necessary. Vitals/Labs Vital Signs Date Time Temp Pulse Resp B/P (MAP) Pulse Ox O2 Delivery O2 Flow Rate FiO2 08/01/25 04:00 99.3 93 18 131/64 93 Room Air 07/31/25 20:15 2 28 Laboratory Tests 08/01/25 04:30 Medications Current Medications Clindamycin HCl/ Dextrose 50 ml @ As Directed STK-MED ONCE IV; Start 07/31/25 at 06:15; Stop 07/31/25 at 06:15; Status DC Sodium Chloride 1,000 ml @ As Directed STK-MED ONCE IV; Start 07/31/25 at 06:15; Stop 07/31/25 at 06:15; Status DC Ketorolac Tromethamine 30 mg STK-MED ONCE .ROUTE; Start 07/31/25 at 06:31; Stop 07/31/25 at 06:31; Status DC Ropivacaine 150 mg STK-MED ONCE .ROUTE; Start 07/31/25 at 06:31; Stop 07/31/25 at 06:31; Status DC Tranexamic Acid 1,000 mg STK-MED ONCE .ROUTE; Start 07/31/25 at 06:32; Stop 07/31/25 at 06:32; Status DC Propofol 200 mg STK-MED ONCE IV; Start 07/31/25 at 06:52; Stop 07/31/25 at 06:52; Status DC Midazolam HCl 2 mg STK-MED ONCE .ROUTE; Start 07/31/25 at 06:52; Stop 07/31/25 at 06:52; Status DC Fentanyl Citrate 100 mcg STK-MED ONCE .ROUTE; Start 07/31/25 at 06:52; Stop 07/31/25 at 06:52; Status DC Rocuronium [place] 50 mg STK-MED ONCE .ROUTE; Start 07/31/25 at 07:05; Stop 07/31/25 at 07:06; Status DC Ropivacaine 150 mg STK-MED ONCE .ROUTE; Start 07/31/25 at 07:08; Stop 07/31/25 at 07:08; Status DC Tranexamic Acid 1,000 mg STK-MED ONCE IV Last administered on 07/31/25at 07:40; Start 07/31/25 at 07:40; Stop 07/31/25 at 08:06; Status DC Ropivacaine 150 mg STK-MED ONCE IJ Last administered on 07/31/25at 08:13; Start 07/31/25 at 08:13; Stop 07/31/25 at 08:14; Status DC Ketorolac Tromethamine 30 mg STK-MED ONCE IJ Last administered on 07/31/25at 08:13; Start 07/31/25 at 08:13; Stop 07/31/25 at 08:14; Status DC Tranexamic Acid 1,000 mg STK-MED ONCE IV Last administered on 07/31/25at 09:02; Start 07/31/25 at 09:02; Stop 07/31/25 at 09:03; Status DC Sodium Chloride 1,000 ml @ 100 mls/hr Q10H IV Last administered on 08/01/25at 04:45; Start 07/31/25 at 09:30; Stop 08/01/25 at 09:29 Polyethylene Glycol 17 gm DAILY PO; Start 08/01/25 at 09:00; Stop 08/31/25 at 08:59 Bisacodyl 10 mg DAILY PRN RC; Start 08/03/25 at 09:30; Stop 09/02/25 at 09:29 Ketorolac Tromethamine 15 mg Q6H PRN IV Last administered on 08/01/25at 04:50; Start 07/31/25 at 09:30; Stop 08/05/25 at 09:29 Ferrous Fumarate 324 mg DAILY PRN PO; Start 07/31/25 at 09:30; Stop 08/30/25 at 09:29 Ondansetron HCl 4 mg Q6H PRN IVP; Start 07/31/25 at 09:30; Stop 08/30/25 at 09:29 Calcium Carbonate 500 mg Q12H PRN PO; Start 07/31/25 at 09:30; Stop 08/30/25 at 09:29 Insulin Human Regular INSULIN SLIDING SCAL... ACHS SQ Last administered on 07/31/25at 22:49; Start 07/31/25 at 11:30; Stop 08/30/25 at 11:29 Cefazolin Sodium 2 gm Q8H IVP Last administered on 07/31/25at 22:53; Start 07/31/25 at 14:30; Stop 07/31/25 at 22:31; Status DC Cyclobenzaprine HCl 5 mg Q8H PRN PO Last administered on 08/01/25at 07:29; Start 07/31/25 at 09:30; Stop 08/30/25 at 09:29 Gabapentin 100 mg TID PO Last administered on 07/31/25at 22:52; Start 07/31/25 at 14:00; Stop 08/30/25 at 13:59 Aspirin 325 mg DAILY PO; Start 08/01/25 at 09:00; Stop 08/31/25 at 08:59 Docusate Sodium 100 mg BID PO Last administered on 07/31/25at 22:53; Start 07/31/25 at 21:00; Stop 08/30/25 at 20:59 Potassium Chloride 100 ml @ 100 mls/hr AD PRN IV; Start 07/31/25 at 09:30; Stop 08/30/25 at 09:29 Potassium Chloride 20 meq AD PRN PO; Start 07/31/25 at 09:30; Stop 08/30/25 at 09:29 Potassium Chloride 20 meq AD PRN PO; Start 07/31/25 at 09:30; Stop 08/30/25 at 09:29 Tramadol HCl 50 mg Q6H PRN PO; Start 07/31/25 at 09:30; Stop 08/05/25 at 09:29 Acetaminophen/ Hydrocodone Bitart Q4H PRN PO; Start 07/31/25 at 09:30; Stop 07/31/25 at 09:37; Status DC Acetaminophen 100 ml @ As Directed STK-MED ONCE .ROUTE; Start 07/31/25 at 09:31; Stop 07/31/25 at 09:31; Status DC Acetaminophen/ Hydrocodone Bitart 1 tab Q4H PRN PO Last administered on 07/31/25at 22:53; Start 07/31/25 at 10:00; Stop 08/05/25 at 09:59 Acetaminophen/ Hydrocodone Bitart 2 tab Q4H PRN PO Last administered on 08/01/25at 07:29; Start 07/31/25 at 10:00; Stop 08/05/25 at 09:59 Fentanyl Citrate 100 mcg STK-MED ONCE .ROUTE; Start 07/31/25 at 09:43; Stop 07/31/25 at 09:43; Status DC Atorvastatin Calcium 40 mg AM PO; Start 08/01/25 at 09:00; Stop 08/31/25 at 08:59 Furosemide 20 mg DAILY PO; Start 08/01/25 at 09:00; Stop 08/31/25 at 08:59 Hydroxyzine HCl 25 mg PM PO Last administered on 07/31/25at 22:56; Start 07/31/25 at 21:00; Stop 08/30/25 at 20:59 Losartan Potassium 100 mg PM PO; Start 07/31/25 at 21:00; Stop 08/30/25 at 20:59 Metoclopramide HCl 10 mg BID PO Last administered on 07/31/25at 22:52; Start 07/31/25 at 21:00; Stop 08/30/25 at 20:59 Pantoprazole Sodium 40 mg AM PO; Start 08/01/25 at 09:00; Stop 08/31/25 at 08:59 Venlafaxine HCl 75 mg PM PO Last administered on 07/31/25at 22:54; Start 07/31/25 at 21:00; Stop 08/30/25 at 20:59 Home Med (Dapagliflozin Propanediol (Farxiga)... AM PO; Start 08/01/25 at 09:00; Stop 08/31/25 at 08:59 Insulin Glargine 15 units AM SQ; Start 08/01/25 at 09:00; Stop 08/31/25 at 08:59 Metoprolol Succinate 100 mg HS PO Last administered on 07/31/25at 22:53; Start 07/31/25 at 21:00; Stop 08/30/25 at 20:59 Mirtazapine 30 mg HS PO Last administered on 07/31/25at 22:52; Start 07/31/25 at 21:00; Stop 08/30/25 at 20:59 Nifedipine 60 mg DAILY PO; Start 08/01/25 at 09:00; Stop 08/31/25 at 08:59 Home Med (Semaglutide (Ozempic) 1 MG) QWEEK SQ; Start 08/07/25 at 09:00; Stop 09/06/25 at 08:59 Miscellaneous Medication 290 mcg AD PO; Start 07/31/25 at 12:00; Stop 07/31/25 at 11:49; Status DC JUWAN WARD [facility] Aug 01, 2025 07:53
[2025-08-01] MEDS: (Dapagliflozin Propanediol (Farxiga) 10 MG) PO SCH (09:00)
[2025-08-01] MEDS: ASPIRIN 325MG EC TAB PO SCH (09:34)
[2025-08-01 09:35] VITALS: O2SAT 92
[2025-08-01] MEDS: PoTASSium chloRIDE 20MEQ ER 20 MEQ ERTAB PO PRN (09:35)
[2025-08-01] MEDS: CALCIUM CARB 500MG PO PRN (09:35)
[2025-08-01 11:27] VITALS: BP 96/55; PULSE 79; RESP 18; TEMP 98.1
--- NOTE | 2025-08-01 11:43 | NUR ---
[facility] CM MET WITH PT AND THIS MORNING, INITIAL ASSESSMENT DONE. PATIENT IS INDEPENDENT PRIOR TO SURGERY, LIVES AT HOME WITH HER SPOUSE. PT VERBALIZED SHE HAS A CURRENT WORKING STANDARD WALKER, SHOWER CHAIR, PROVIDER 21HRS PER WEEK, OWN GLUCOMETER, TAKES PO AND INSULIN FOR DM, BPM, GOES TO [employer] FOR MEDS. DENIES ANY OTHER EQUIPMENT/SERVICES. FEELS SAFE TO GO BACK HOME, DOES NOT DRIVE, SPOUSE ABLE TO ASSIST WITH TRANSPORTATION AND NEEDS NECESSARY. DISCUSSED MD RECOMMENDATIONS FOR HOME W/HH FOR PT, PT ALREADY HAS OWN WALKER, PT AGREEABLE, CONSENT SIGNED LUCIO FOR [facility]. [facility] HOME W/HH ONCE APPROVED. CM TO CONTINUE TO FOLLOW UP. Addendum: 08/01/25 at 1145 by VIET RUIZ LVN Amended: Links added.
[2025-08-01 16:27] VITALS: BP 106/58; PULSE 86; RESP 18; TEMP 98.6
[2025-08-01] MEDS ORDERED: HYDR-4060 PO (17:51)
[2025-08-01] MEDS ORDERED: GABA100C PO (17:51)
[2025-08-01] MEDS ORDERED: CYCL-309 PO (17:51)
[2025-08-01] MEDS ORDERED: ASPI-891 PO (17:51)
[2025-08-01] MEDS ORDERED: DOCU-116 PO (17:51)
--- NOTE | 2025-08-01 18:50 | NUR ---
PATIENT DISCHARGED PATIENT DISCHARGED TO HOME WITH [facility]. PERIPHERAL IV DISCONTINUED CATHETER INTACT. DISCHARGE INSTRUCTIONS GIVEN. PATIENT AWARE TO F/U WITH DR. VANEGAS 08/22 AT 9:45 AM. PRESCRIPTIONS FAXED TO PREFERRED PHARMACY. DRESSING SITE CLEAN DRY AND INTACT. PATIENT REPORTS PAIN LEVEL OF 05/21. PAIN MEDICATION ADMINISTERED PRIOR TO D/C. PATIENT EDUCATION PROVIDED. PATIENT TAKEN DOWN BY WHEELCHAIR. ALL BELONGINGS SENT WITH PATIENT. Addendum: 08/01/25 at 1943 by JAMARCUS SANDERS RN RN REPORT GIVEN TO BOBO EDEN WITH [facility]. ALL QUESTIONS ANSWERED.
[2025-08-07] MEDS ORDERED: (Semaglutide (Ozempic) 1 MG) SQ SCH (09:00)
== END 2025-08-01 19:00 | disposition home health service (06) ==
LOC: DAH 05:50 → DAHIP 05:51 → 4CH 11:00
PROVIDERS: ADMIT Student in an Organized Health Care Education/Training Program; ATTEND Student in an Organized Health Care Education/Training Program
DX: M17.11 Unilateral primary osteoarthritis, right knee (principal); I25.10 Atherosclerotic heart disease of native coronary artery without angina pectoris; I12.9 Hypertensive chronic kidney disease with stage 1 through stage 4 chronic kidney disease, or unspecified chronic kidney disease; E11.22 Type 2 diabetes mellitus with diabetic chronic kidney disease; M25.561 Pain in right knee; N18.30 Chronic kidney disease, stage 3 unspecified; Z79.899 Other long term (current) drug therapy; Z98.890 Other specified postprocedural states
CPT/HCPCS: 82040; 80048 ×2; 85025; 85610; 85730; 84134; 86140; 36415 ×2; 87641; 27447; 96374; 96376 ×2; 64447; 82948 ×7; 73560; 97161; 97116 ×3; 96375; 85027; 97530 ×2; G0378 ×34; A4663; J3010 ×2; J3490 ×5; J7030; J2704; J1885 ×4; J2795 ×3; J1815; J0690 ×2; C1713 ×2; C1776 ×2; A4649 ×2; A4930; A6255; A5120; A4215; A4223 ×2; A4213; A4222; A4221; A4216; J2250